=== PATIENT | male | born 1935 | race Caucasian/White ===

== ENCOUNTER → 2021-04-08 13:10 | Outpatient (CLI) | payer MEDICARE, SELFPAY ==
--- NOTE | 2021-04-08 | DI.ECHO.S_ITS ---
[facility]---------+ [facility] +---------+ : : [address] : [address] : : : : [id number] : : : : Phone: [phone] +---------+ Echocardiogram Report + + :Name: LUBA ARRIOLA Study Date: 04/08/2021 Height: 72 in : :[facility] ReadingLocation: Weight: 212 lb : : Gender: Male BSA: 2.2 m2 : :: 1935 Age: 85 yrs BP: 175/90 mmHg: :Reason For Study: Dizziness : :Ordering Physician: CHANTELLE, : :ROD Corea Performed By: Josias Arce : :Referring: ROD LOCKHART : + + Interpretation Summary The ejection fraction is estimated to be 60-65%. There is mild tricuspid regurgitation. Right ventricular systolic pressure is estimated to be 27 mmHg plus the clinically estimated CVP which cannot be estimated on this exam. Procedure: A two-dimensional transthoracic echocardiogram with color flow and Doppler was performed. The study quality was technically difficult. There is no prior echocardiogram noted for this patient. Left Ventricle: The left ventricle is normal in size and wall thickness. Left ventricular systolic function is normal. The ejection fraction is estimated to be 60-65%. There are no focal wall motion abnormalities. Diastolic parameters suggest probable normal left ventricular diastolic function and normal filling pressures. Right Ventricle: The right ventricle is not well visualized. The right ventricle grossly appears normal in size with probable normal systolic function. Atria: Both atria are normal in size. There is no Doppler evidence for an interatrial shunt. Mitral Valve: The mitral valve is normal in structure and function. There is trace mitral regurgitation. Aortic Valve: The aortic valve is normal in structure and function. No aortic regurgitation is present. Tricuspid Valve: The tricuspid valve is normal in structure and function. There is mild tricuspid regurgitation. Right ventricular systolic pressure is estimated to be 27 mmHg plus the clinically estimated CVP which cannot be estimated on this exam. Pulmonic Valve: The pulmonic valve is normal in structure and function. There is no pulmonic valvular regurgitation. Great Vessels: The aortic root is normal size. The ascending aorta could not be visualized. The inferior vena cava was not well visualized. Pericardium/ Pleura There is no pericardial effusion. There is no pleural effusion. MMode/2D Measurements & Calculations LVIDd: 4.3 cm LVOT diam: 2.3 cm LVIDs: 2.7 cm Ao root diam: 3.6 cm FS: 36.7 % IVSd: 1.1 cm LVPWd: 0.91 cm LV slaughter. diameter/BSA (cm/m^2): 1.9 LV sys. diameter/BSA (cm/m^2): 1.2 LA A4 area: 15.6 cm2 RA long axis: 4.5 cm LA length (vol): 5.5 cm RA area: 9.4 cm2 RA vol: 17.0 ml RA : 7.8 ml/m2 Doppler Measurements & Calculations Ao V2 max: 115.3 cm/sec LVOT Max Shaheed: 107.4 cm/sec Ao V2 mean: 79.5 cm/sec LV V1 max P.6 mmHg Ao max P.3 mmHg LV V1 VTI: 20.8 cm Ao mean P.8 mmHg LISA(I,D): 3.9 cm2 Ao V2 VTI: 22.2 cm LISA(V,D): 3.9 cm2 sev ratio: 0.93 LISA indexed to BSA (cm^2/m^2): 1.8 MV E max shaheed: 79.1 cm/sec TR max shaheed: 260.9 cm/sec MV A max shaheed: 103.1 cm/sec TR max P.2 mmHg MV E/A: 0.77 Med Peak E' Shahede: 5.5 cm/sec E/E' med: 14.3 Lat Peak E' Shaheed: 8.3 cm/sec E/E' lat: 9.6 E/e' average: 11.9 MV dec time: 0.27 sec SV(LVOT): 87.7 ml Reading Physician:09:[id number] AM
== END ==
PROVIDERS: PCP Internal Medicine; Referring Provider Family Medicine; Visit Provider Family Medicine
DX: R42 Dizziness and giddiness (principal)
CPT/HCPCS: 93306